=== PATIENT | female | born 1955 | race Caucasian/White ===

== ENCOUNTER → 2017-08-03 | Outpatient (CLI) | payer OTHER | END | disposition home or self-care (01) | LOC: OIH 13:02 | PROVIDERS: ATTEND Family Medicine | DX: M19.031 Primary osteoarthritis, right wrist (principal); M47.895 Other spondylosis, thoracolumbar region; J98.11 Atelectasis; M89.9 Disorder of bone, unspecified; R42 Dizziness and giddiness | CPT/HCPCS: 71046; 71110; 71120 ==

== ENCOUNTER 2021-04-27 08:00 | Observation (INO) | payer BC ==
[~2021-04-27] VITALS: Ht 157.5 cm; Wt 108.9 kg
[2021-04-27 08:54] VITALS: BP 118/60
[2021-04-27 10:31] LABS: BASOPHILS % (AUTO) 1.2 % (0.0-5.0); EOSINOPHILS % (AUTO) 2.2 % (0.0-8.0); HEMATOCRIT 46.2 % (36-48); LYMPHOCYTES % (AUTO) 26.4 % (21.0-51.0); MEAN CORPUSCULAR HEMOGLOBIN 28.7 pg (27.0-33.0); MEAN CORPUSCULAR HGB CONC 31.2 g/dL (32.0-36.0); MONOCYTES % (AUTO) 7.3 % (3.0-13.0); NEUTROPHILS % (AUTO) 62.7 % (40.0-77.0); PLATELET COUNT (AUTO) 222 K/uL (130-400); RED BLOOD CELL COUNT(AUTO) 5.02 MIL/uL (4.00-5.50); RED CELL DISTRIBUTION WIDTH 13.5 % (11.0-15.5); WHITE BLOOD COUNT (AUTO) 8.2 K/uL (4.8-10.8)
[2021-04-27 10:37] LABS: POTASSIUM 4.3 mmol/L (3.5-5.1)
[2021-04-29] MEDS ORDERED: ROSU5TAB12 PO (09:29)
[2021-04-29] MEDS ORDERED: LEVO150T11 PO (09:29)
[2021-04-29] MEDS ORDERED: OLME20TA22 PO (09:29)
[2021-04-29] MEDS ORDERED: ZINC50TA64 PO (09:30)
[2021-04-29] MEDS ORDERED: CYAN50009 PO (09:30)
[2021-04-29] MEDS ORDERED: CHOL2000 PO (09:30)
[2021-04-30] VITALS (21 sets, daily range): BP systolic 121–141; BP diastolic 66–95
[2021-04-30] MEDS: CEFAZOLIN SODIUM 1 GM VIAL IVP SCH ×2 (06:30→07:50)
[2021-04-30] MEDS ORDERED: LACTATED RINGERS 1000ML 1,000 ML IV ONE (06:37)
[2021-04-30] MEDS ORDERED: CEFAZOLIN SODIUM 1 GM VIAL ONE (06:45)
[2021-04-30] MEDS ORDERED: THROMBIN-JMI 20000 UNIT KIT TP ONE (06:45)
[2021-04-30] MEDS ORDERED: BUPIVACAINE/EPI/PF 0.25% 30ML VIAL IJ ONE (06:45)
[2021-04-30] MEDS ORDERED: SUCCINYLCHOLINE CHLORIDE 20 MG/ML 10 ML VIAL ONE ×2 (06:55→09:41)
[2021-04-30] MEDS ORDERED: LIDOCAINE PF 100MG/5ML (2%) SYRINGE 5ML ONE (06:55)
[2021-04-30] MEDS ORDERED: PROPOFOL 10 MG/ML 20ML VIAL IV ONE ×3 (06:56→09:34)
[2021-04-30] MEDS ORDERED: ONDANSETRON 4MG INJ ONE ×2 (06:56→08:15)
[2021-04-30] MEDS ORDERED: GLYCOPYRROLATE 1 MG/5 ML SYRINGE ONE (06:56)
[2021-04-30] MEDS ORDERED: ROCURONIUM 10MG/1ML SYR 10 MG/ML ML ONE ×2 (06:56→08:47)
[2021-04-30] MEDS ORDERED: NEOSTIGMINE 5MG/5ML SYR IV ONE (06:56)
[2021-04-30] MEDS ORDERED: MIDAZOLAM HCL 1 MG/ML 2ML VIAL ONE (06:56)
[2021-04-30] MEDS ORDERED: DEXAMETHASONE SOD PHOSPHATE 10MG/ML 1ML VIAL ONE ×2 (06:56→06:58)
[2021-04-30] MEDS ORDERED: FENTANYL CITRATE PF 50 MCG/1 ML 2ML VIAL ONE ×4 (06:57→09:36)
[2021-04-30] MEDS ORDERED: PHENYLEPHRINE HCL 10 MG/ML 1ML VIAL IV ONE (07:08)
[2021-04-30] MEDS ORDERED: SCOPOLAMINE HYDROBROMIDE 1 EACH ADH..PATCH TD ONE (07:34)
[2021-04-30] MEDS ORDERED: ARTIFICIAL TEARS 3.5 GM OINTMENT ONE (10:09)
[2021-04-30] MEDS: LEVOTHYROXINE 150 MCG TABLET PO SCH (10:41)
[2021-04-30] MEDS: CYANOCOBALAMIN (VITAMIN B-12) 1,000 MCG TABLET PO SCH (10:44)
[2021-04-30] MEDS: LOSARTAN 100 MG TABLET PO SCH (10:46)
[2021-04-30] MEDS: LACTATED RINGERS 1000ML 1,000 ML IV SCH ×2 (11:00→23:36)
[2021-04-30] MEDS ORDERED: CEFAZOLIN SODIUM 1 GM VIAL IVP SCH (11:00)
[2021-04-30] MEDS ORDERED: PROMETHAZINE HCL 25 MG/ML 1ML AMPULE IM PRN (11:00)
[2021-04-30] MEDS ORDERED: 0.9%NACL 10ML VIAL IVP PRN (11:00)
[2021-04-30] MEDS ORDERED: MORPHINE 2 MG SYG IVP PRN (11:00)
[2021-04-30] MEDS ORDERED: MEPERIDINE-PF 25 MG/ML SYG ONE (11:55)
[2021-04-30] MEDS: DEXAMETHASONE SOD PHOSPHATE 4 MG/ML 1ML VIAL IVP SCH ×3 (12:01→23:34)
[2021-04-30] MEDS ORDERED: KETOROLAC 30MG VIAL (30MG/ML) ONE (12:24)
[2021-04-30] MEDS: HYDROCODONE/ACETAMINOPHEN 5/325 MG TAB PO PRN ×2 (12:34→20:56)
[2021-04-30] MEDS: BENZOCAINE/MENTH/CETYLPYRD CL 1 EACH LOZENGE MM PRN ×3 (18:05→23:34)
[2021-04-30] MEDS ORDERED: ATORVASTATIN 10 MG TABLET PO SCH (21:00)
[2021-05-01 00:06] VITALS: BP 108/72
[2021-05-01] MEDS: HYDROCODONE/ACETAMINOPHEN 5/325 MG TAB PO PRN (04:16)
[2021-05-01 04:55] VITALS: BP 117/67
[2021-05-01] MEDS: LEVOTHYROXINE 150 MCG TABLET PO SCH (05:40)
[2021-05-01] MEDS: DEXAMETHASONE SOD PHOSPHATE 4 MG/ML 1ML VIAL IVP SCH (05:41)
[2021-05-01 08:00] VITALS: BP 141/68
[2021-05-01] MEDS ORDERED: ZINC SULFATE 220 CAPSULE PO SCH (09:00)
[2021-05-01] MEDS ORDERED: **HM**(Cholecalciferol (Vitamin D3) (Vitamin D3) 50 MCG) PO SCH (09:00)
[2021-05-01] MEDS: CYANOCOBALAMIN (VITAMIN B-12) 1,000 MCG TABLET PO SCH (09:09)
[2021-05-01] MEDS: LOSARTAN 100 MG TABLET PO SCH (09:10)
== END 2021-05-01 11:00 | disposition home or self-care (01) ==
LOC: EDSTATUS 08:00 → DAHIP 04-30 06:09 → 4AH 04-30 14:51 → 3BH 04-30 20:47
PROVIDERS: ADMIT Neurological Surgery; ATTEND Neurological Surgery
DX: M25.78 Osteophyte, vertebrae (principal); Z20.822 Contact with and (suspected) exposure to COVID-19; M50.123 Cervical disc disorder at C6-C7 level with radiculopathy; M48.02 Spinal stenosis, cervical region; I10 Essential (primary) hypertension; E11.9 Type 2 diabetes mellitus without complications; G47.33 Obstructive sleep apnea (adult) (pediatric); E89.0 Postprocedural hypothyroidism; Z85.850 Personal history of malignant neoplasm of thyroid; Z90.710 Acquired absence of both cervix and uterus; Z79.899 Other long term (current) drug therapy
CPT/HCPCS: 20930; 22551; 22845; 22853; 36415; 72020; 80051; 82948 ×2; 85025; 87635; 96374; 96375; 96376 ×2; A4215; A4216; A4221; A4222; A4223 ×2; A4344; A4600; A4649 ×2; A4663; A6010; C1713; G0378 ×24; J0330 ×2; J0690 ×3; J1100 ×5; J1885; J2001; J2175; J2250; J2370; J2405 ×2; J2704 ×3; J2710; J3010 ×4; J3490 ×2; J7030; J7120 ×3

== ENCOUNTER → 2021-05-26 | Outpatient (CLI) | payer BC ==
[~2021-05-26] MED LIST: CHOL2000 PO; CYAN50009 PO; LEVO150T11 PO; OLME20TA22 PO; ROSU5TAB12 PO; ZINC50TA64 PO
== END | disposition home or self-care (01) ==
LOC: RAH 15:19
PROVIDERS: ATTEND Neurological Surgery
DX: M54.12 Radiculopathy, cervical region (principal); Z98.1 Arthrodesis status
CPT/HCPCS: 72040

== ENCOUNTER 2024-06-10 12:29 | Emergency (ER) | payer BC ==
[~2024-06-10] VITALS: Ht 157.5 cm; Wt 104.3 kg
[~2024-06-10 12:29] MED LIST changes: -OLME20TA22 PO; +OLME20TA68 PO; -ROSU5TAB12 PO; +ROSU5TAB51 PO
--- NOTE | 2024-06-10 13:01 | HMCIMG ---
Exam Type: SHOULDER COMP 2+VWS LT Clinical Information: injury Comparison: None FINDINGS: Fracture of the humeral neck is seen with associated fracture involving the base of the greater tuberosity. Glenohumeral relationship is preserved. IMPRESSION: Shoulder fracture as noted.
[2024-06-10] MEDS: morPHINE 4 MG SYG IM ONE (13:18)
[2024-06-10] MEDS: ketOROlac 15MG/ML VIAL (15MG/ML) IM ONE (13:18)
[2024-06-10] MEDS ORDERED: NAPR-1196 PO (13:39)
[2024-06-10] MEDS ORDERED: CYCL5TAB3 PO (13:39)
--- NOTE | 2024-06-10 13:39 | ERN ---
ED Note History of Present Illness Stated Complaint: LEFT BROKEN SHOULDER Chief Complaint: Shoulder Injury/Pain Time Seen by MD: 12:36 Allergies: Coded Allergies: No Known Drug Allergies (Verified Allergy, Unknown, 04/27/21) Home Meds Reported Medications Zinc Amino Acid Chelate (Zinc) 50 Mg Tablet, 50 MG PO DAILY, TAB 04/29/21 Cyanocobalamin (Vitamin B-12) (Vitamin B12) 5,000 Mcg Tab.rapdis, 5000 MCG PO DAILY, TAB 04/29/21 Cholecalciferol (Vitamin D3) (Vitamin D3) 50 Mcg Capsule, 50 MCG PO DAILY, CAP 04/29/21 Olmesartan Medoxomil (Olmesartan Medoxomil) 20 Mg Tablet, 20 MG PO DAILY, TAB 04/29/21 Rosuvastatin Calcium (Rosuvastatin Calcium) 5 Mg Tablet, 5 MG PO DAILY, TAB 04/29/21 Levothyroxine Sodium (Levothyroxine Sodium) 150 Mcg Tablet, 150 MCG PO DAILY, TAB 04/29/21 Past Medical History Past Medical History: Diabetes-Type II, High Cholesterol, Heart Disease, Hypertension Surgical History: Appendectomy, Hysterectomy, Other Surgical History Other: NECK SURGERY Initial Vital Sign VS Vital Signs Date Time Temp Pulse Resp B/P (MAP) Pulse Ox O2 Delivery O2 Flow Rate FiO2 06/10/24 13:09 98.8 78 20 125/67 100 Room Air 0 06/10/24 13:13 21 ED Course ED Course Orders Procedure Category Date Status Time Shoulder Comp 2+Vws Lt RAD 06/10/24 Resulted 12:37 Morphine 4mg Syg PHA 06/10/24 Complete (Morphine 4mg Syg) 13:30 Sling ALTA 06/10/24 In Process 13:07 Ketorolac PHA 06/10/24 Complete Tromethamine 15mg/Ml 13:30 Hydrocodone/Apap PHA 06/10/24 Verified 10/325 Tab ([place] 10) 14:00 Current Medications Medications (Trade) Dose Ordered Sig/Viktoriya Route PRN Reason Start Time Stop Time Status Last Admin Dose Admin Ketorolac Tromethamine (toRADol) 15 mg ONCE ONCE IM 06/10/24 13:30 06/10/24 13:31 DC 06/10/24 13:18 Morphine Sulfate (morPHINE 4MG SYG) 4 mg ONCE ONCE IM 06/10/24 13:30 06/10/24 13:31 DC 06/10/24 13:18 Vital Signs Date Time Temp Pulse Resp B/P (MAP) Pulse Ox O2 Delivery O2 Flow Rate FiO2 06/10/24 13:13 98.4 78 12 125/78 98 Room Air* 0 21 06/10/24 13:09 98.8 78 20 125/67 100 Room Air 0 DX & DISP Disposition: Discharge Departure Impression: Primary Impression: Fracture of neck of left humerus Condition: Stable Scripts Naproxen (Naproxen) 250 Mg Tablet 250 MG PO BID for 5 Days, #10 TAB Prov: LEO FRENCH MD 06/10/24 Cyclobenzaprine HCl (Cyclobenzaprine HCl) 5 Mg Tablet 5 MG PO BID for 5 Days, #10 TAB Prov: LEO FRENCH MD 06/10/24 Referrals: SELF,REFERRAL (PCP) LEO FRENCH MD Jun 10, 2024 13:39
[2024-06-10] MEDS: HYDROcodone/acetaMINOPHEN 10/325 MG TAB PO ONE (13:45)
[2024-06-10 13:59] VITALS: BP 120/73; PULSE 71; RESP 18; TEMP 98; O2SAT 98
== END 2024-06-10 13:59 | disposition home or self-care (01) ==
LOC: EDH 12:29
DX: S42.292A Other displaced fracture of upper end of left humerus, initial encounter for closed fracture (principal); E11.9 Type 2 diabetes mellitus without complications; E78.00 Pure hypercholesterolemia, unspecified; I10 Essential (primary) hypertension; Z79.890 Hormone replacement therapy; Z79.899 Other long term (current) drug therapy; Z90.49 Acquired absence of other specified parts of digestive tract; Z90.710 Acquired absence of both cervix and uterus; X58.XXXA Exposure to other specified factors, initial encounter; Y93.89 Activity, other specified; Y92.89 Other specified places as the place of occurrence of the external cause; Y99.8 Other external cause status
CPT/HCPCS: 99284; 73030; 96372 ×2; J1885; J2270

== ENCOUNTER → 2024-11-29 | Outpatient (CLI) | payer BC ==
[~2024-11-29] MED LIST changes: +CYCL5TAB3 PO; +NAPR-1196 PO
--- NOTE | 2024-11-30 06:11 | HMCIMG ---
EXAMINATION: NONCONTRAST MRI OF THE LEFT SHOULDER. CLINICAL HISTORY: Suspected adhesive capsulitis. COMPARISON: None available. TECHNIQUE: Multiplanar, multisequence MR images of the left shoulder are submitted. FINDINGS: There is type I acromion with no subacromial spur. The coracoclavicular ligament is intact. There is moderate acromioclavicular joint iosteoarthritis with mild periosseous synovial thickening. There is no subacromial?subdeltoid bursitis. The peritendinous soft tissues are normal. The supraspinatus tendon demonstrates moderate insertional tendinosis with a 0.6 cm partial thickness anterior footprint tear and an intratendinous ganglion cyst. The subscapularis, infraspinatus, and teres minor tendons are intact without evidence of tendinopathy or tear. Moderate supraspinatus muscle atrophy with mild fatty infiltration and moderate teres minor fatty atrophy. The long head of the biceps tendon shows mild intraarticular tendinosis with fraying at the biceps labral junction and moderate tendon attenuation. The bicipital anchor is intact. A nonacute undisplaced surgical neck fracture of the proximal humerus extending into the greater tuberosity with mild edema and a focal area of low signal in the posterior superior humeral head compatible with possible avascular necrosis. The labrum is degenerated with a global tear. The glenohumeral joint space is preserved and the articular surfaces are intact. A small 0.5 cm calcific focus is seen deep to the supraspinatus muscle. IMPRESSION: 1. Nonacute undisplaced surgical neck fracture of the proximal humerus extending into the greater tuberosity. 2. 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 3. Moderate supraspinatus insertional tendinosis with 0.6 cm partial thickness anterior footprint tear and intratendinous ganglion cyst. 4. Global labral tear. /[place]
== END | disposition home or self-care (01) ==
LOC: RAH 12:59
PROVIDERS: ATTEND Student in an Organized Health Care Education/Training Program
DX: S42.212A Unspecified displaced fracture of surgical neck of left humerus, initial encounter for closed fracture (principal); S43.432A Superior glenoid labrum lesion of left shoulder, initial encounter; M75.02 Adhesive capsulitis of left shoulder; M75.112 Incomplete rotator cuff tear or rupture of left shoulder, not specified as traumatic; M62.512 Muscle wasting and atrophy, not elsewhere classified, left shoulder; M67.814 Other specified disorders of tendon, left shoulder; M67.412 Ganglion, left shoulder; X58.XXXA Exposure to other specified factors, initial encounter; Y93.89 Activity, other specified; Y92.89 Other specified places as the place of occurrence of the external cause; Y99.8 Other external cause status
CPT/HCPCS: 73221